=== PATIENT | female | born 1985 | race Two or more races ===

== ENCOUNTER 2016-07-08 08:55 | Observation (INO) | payer MEDICAID | END 2016-07-08 10:40 | disposition home or self-care (01) | DRG 955 | LOC: LDRP 08:55 | PROVIDERS: ADMIT Specialist; ATTEND Specialist | DX: O26.859 Spotting complicating pregnancy, unspecified trimester (principal); Z3A.00 Weeks of gestation of pregnancy not specified | CPT/HCPCS: 59025; 76815; 81002; G0378 ==

== ENCOUNTER 2016-07-09 03:49 | Inpatient (IN) | payer MEDICAID ==
[~2016-07-09] VITALS: Ht 175.3 cm; Wt 69.9 kg
[2016-07-09] VITALS (9 sets, daily range): BP systolic 98–115; BP diastolic 54–70
[2016-07-09] MEDS ORDERED: LACT. RINGERS/OXYTOCIN 20UNITS 1,000 ML IV SCH ×2 (04:54→10:41)
[2016-07-09] MEDS ORDERED: PROMETHAZINE HCL 25 MG/ML 1ML IV PRN (05:00)
[2016-07-09] MEDS ORDERED: PHISODERM TOP SOLN 240ML BTL TOP PRN (05:00)
[2016-07-09] MEDS ORDERED: NALBUPHINE HCL 10 MG/1ml INJECTION IV PRN (05:00)
[2016-07-09] MEDS ORDERED: LIDOCAINE 2%HCL (LOCAL ANESTH.) INJ 20ML MDV IJ PRN (05:00)
[2016-07-09] MEDS ORDERED: DERMOPLAST 60ML BOTTLE TOP PRN (05:00)
[2016-07-09] MEDS ORDERED: METHYLERGONOVINE MALEATE 0.2 MG/ML AMP IM PRN (05:00)
[2016-07-09] MEDS ORDERED: WITCH HAZEL-GLYCERIN PAD TOP PRN (05:00)
[2016-07-09 05:22] LABS: Basophils # (auto) 0 uL; Basophils % (auto) 0.4 % (0.0-2.0); Eosinophils # (auto) 0 uL; Eosinophils % (auto) 0.4 % (0.0-7.0); Hematocrit 38.5 % (36.0-46.0); Hemoglobin 12.9 g/dL (12.2-16.2); Lymphocytes # (auto) 1.8 uL; Lymphocytes % (auto) 16.6 % (10.0-50.0); Mean Corpuscular Hemoglobin 31.5 pg (28.0-32.0); Mean Corpuscular Hgb Conc. 33.5 g/dL (32.0-36.0); Mean Corpuscular Volume 93.8 fL (80.0-100.0); Mean Platelet Volume 11.8 fL (7.4-10.4); Monocytes # (auto) 0.6 uL; Monocytes % (auto) 5.6 % (0.0-12.0); Neutrophils # (auto) 8.5 uL; Platelet Count (auto) 160 10^3/uL (140-450); Red Cell Distribution Width 13.5 % (11.6-16.0); White Blood Cell 11.1 10^3/uL (4.4-10.8)
[2016-07-09] MEDS ORDERED: PENICILLIN G POT 5MIL/D5 50ML 50 ML IV ONE ×2 (05:32→05:45)
[2016-07-09 05:38] LABS: INR 0.95 (0.9-1.15); Partial Thromboplastin Time 27.9 sec (22.64-33.71); Prothrombin Time 9.8 sec (9.37-12.3)
[2016-07-09 05:44] LABS: Urine Bilirubin Negative (Negative); Urine Color Red (Yellow); Urine Glucose Normal (Normal); Urine Ketone Negative (Negative); Urine Mucus FEW (None Seen); Urine Nitrite Negative (Negative); Urine RBC 505 /hpf (0 - 4); Urine Squamous Epithelial Cell MOD /hpf (<5); Urine Urobilinogen Normal (Negative)
[2016-07-09 05:45] LABS: Urine Blood 3+ /uL (Negative)
[2016-07-09 06:15] LABS: Albumin 2.9 g/dL (3.4-5.0); BUN/Creatinine Ratio 18.9; Calcium 8.4 mg/dL (8.5-10.1); Potassium 3.7 mmol/L (3.5-5.1)
[2016-07-09 06:18] LABS: Bilirubin, Total 0.2 mg/dL (0.2-1.0); Total Protein 6.3 g/dL (6.4-8.2)
[2016-07-09] MEDS ORDERED: BUTORPHANOL TARTRATE 2 MG/1 ML VIAL IM ONE (06:30)
[2016-07-09] MEDS: LACTATED RINGER'S 1,000 ML IV SCH ×2 (07:10→12:54)
[2016-07-09] MEDS ORDERED: SODIUM CHLORIDE 0.9% 500 ML IV PRN (07:27)
[2016-07-09] MEDS ORDERED: NALOXONE HCL 0.4 MG/ML VIAL IV ONE (07:30)
[2016-07-09] MEDS ORDERED: fentaNYL W ROPIVACAINE 150 ML EPI SCH (07:30)
[2016-07-09] MEDS ORDERED: LIDOCAINE HCL 2 %PF INJ 10ML AMP IJ ONE (07:30)
[2016-07-09] MEDS ORDERED: fentaNYL CITRATE 100 MCG/2 ML VL IV ONE (07:30)
[2016-07-09] MEDS ORDERED: ePHEDrine SULFATE 50 MG/ML AMP IV ONE (07:30)
[2016-07-09] MEDS: PENICILLIN G POTASSIUM 2,500,000 UNITS in D5W 5% 50 ML IV SCH ×2 (09:53→13:45)
[2016-07-09] MEDS ORDERED: TERBUTALINE SULFATE 1 MG/ML 1ML VIAL SC ONE (10:45)
[2016-07-09] MEDS ORDERED: AMMONIA 0.33 ML INHALANT IN ONE (17:05)
[2016-07-09] MEDS ORDERED: IBUPROFEN 600 MG TAB PO ONE (17:42)
[2016-07-09] MEDS: CEPHALEXIN 250 MG CAP PO SCH ×2 (17:51→23:45)
[2016-07-09] MEDS ORDERED: SODIUM CHLORIDE 0.9% 1,000 ML IV SCH (18:30)
[2016-07-09 21:06] LABS: Basophils # (auto) 0 uL; Basophils % (auto) 0.3 % (0.0-2.0); Eosinophils # (auto) 0 uL; Hematocrit 26.6 % (36.0-46.0); Hemoglobin 9.1 g/dL (12.2-16.2); Lymphocytes # (auto) 1.3 uL; Lymphocytes % (auto) 8.5 % (10.0-50.0); Mean Corpuscular Hemoglobin 31.9 pg (28.0-32.0); Mean Corpuscular Hgb Conc. 34.2 g/dL (32.0-36.0); Mean Corpuscular Volume 93.2 fL (80.0-100.0); Mean Platelet Volume 11.5 fL (7.4-10.4); Monocytes % (auto) 6.7 % (0.0-12.0); Neutrophils # (auto) 12.8 uL; Neutrophils % (auto) 84.5 % (37.0-80.0); Platelet Count (auto) 139 10^3/uL (140-450); Red Cell Distribution Width 13.8 % (11.6-16.0); SUSPECT VIEW TRANSMISSION; White Blood Cell 15.1 10^3/uL (4.4-10.8)
[2016-07-10 04:15] VITALS: BP 99/60
[2016-07-10] MEDS: CEPHALEXIN 250 MG CAP PO SCH ×3 (05:50→17:32)
[2016-07-10 07:30] VITALS: BP 100/64
[2016-07-10 08:26] LABS: Basophils # (auto) 0 uL; Basophils % (auto) 0.2 % (0.0-2.0); Eosinophils # (auto) 0.1 uL; Eosinophils % (auto) 0.4 % (0.0-7.0); Hematocrit 25.7 % (36.0-46.0); Hemoglobin 8.8 g/dL (12.2-16.2); Lymphocytes # (auto) 3.4 uL; Lymphocytes % (auto) 21.7 % (10.0-50.0); Mean Corpuscular Hemoglobin 31.8 pg (28.0-32.0); Mean Corpuscular Hgb Conc. 34.2 g/dL (32.0-36.0); Mean Platelet Volume 11.4 fL (7.4-10.4); Monocytes # (auto) 0.9 uL; Monocytes % (auto) 5.7 % (0.0-12.0); Neutrophils # (auto) 11.1 uL; Platelet Count (auto) 137 10^3/uL (140-450); Red Cell Distribution Width 13.6 % (11.6-16.0); White Blood Cell 15.5 10^3/uL (4.4-10.8)
[2016-07-10 12:30] VITALS: BP 109/65
[2016-07-10] MEDS: IBUPROFEN 600 MG TAB PO PRN (12:45)
[2016-07-10 16:00] VITALS: BP 106/66
[2016-07-10 19:00] VITALS: BP 112/55
[2016-07-10 22:39] VITALS: BP 121/58
[2016-07-11] MEDS: CEPHALEXIN 250 MG CAP PO SCH ×3 (00:20→12:00)
[2016-07-11 03:30] VITALS: BP 107/64
[2016-07-11 06:50] VITALS: BP 113/68
[2016-07-11] MEDS: IBUPROFEN 600 MG TAB PO PRN (06:59)
[2016-07-11] MEDS ORDERED: PREN-96 PO (09:49)
== END 2016-07-11 12:35 | disposition home or self-care (01) | DRG 560 ==
LOC: LDRP 03:49 → OBSVTOIN 03:49
PROVIDERS: ADMIT Specialist; ATTEND Specialist
PROC: 10D07Z6 Extraction of Products of Conception, Vacuum, Via Natural or Artificial Opening (ICD-10-PCS; principal; 2016-07-09)
PROC: 0KQM0ZZ Repair Perineum Muscle, Open Approach (ICD-10-PCS; 2016-07-09)
PROC: 0U9LXZZ Drainage of Vestibular Gland, External Approach (ICD-10-PCS; 2016-07-09)
PROC: 3E0S3CZ (ICD-10-PCS; 2016-07-09)
PROC: 00HU33Z Insertion of Infusion Device into Spinal Canal, Percutaneous Approach (ICD-10-PCS; 2016-07-09)
DX: O99.824 Streptococcus B carrier state complicating childbirth (principal); D62 Acute posthemorrhagic anemia; O75.89 Other specified complications of labor and delivery; N75.0 Cyst of Bartholin's gland; O70.1 Second degree perineal laceration during delivery; Z37.0 Single live birth; O09.33 Supervision of pregnancy with insufficient antenatal care, third trimester; Z3A.39 39 weeks gestation of pregnancy; O90.81 Anemia of the puerperium
CPT/HCPCS: 36415; 59025; 59409; 62282; 76815; 80053; 81001; 81002; 85025; 85610; 85730; 86850; 86900; 86901; 88307; 96365; 96366; J2540; J2590; J3010; J7060